=== PATIENT | female | born 1955 | race Caucasian/White ===

== ENCOUNTER 2018-12-31 06:35 | Emergency (ER) | payer BC ==
[2018-12-31 06:49] VITALS: BP 116/69
[2018-12-31] MEDS ORDERED: Sodium Chloride 0.9% 10 ML Syringe FLUSH PRN (06:51)
[2018-12-31] MEDS ORDERED: Aspirin 81 MG Tab.Chew PO ONE (06:51)
[2018-12-31] MEDS ORDERED: Tenecteplase 50 MG Kit IV ONE (06:52)
[2018-12-31] MEDS ORDERED: Aspirin 81 MG Tab.Chew ONE (06:53)
[2018-12-31] MEDS ORDERED: Tenecteplase 50 MG Kit ONE (06:53)
[2018-12-31] MEDS ORDERED: Heparin Sodium 5,000 Units/ML Vial IVPUSH ONE (07:04)
--- NOTE | 2018-12-31 07:04 | EDM.PDOC ---
ED HPI GENERAL MEDICAL PROBLEM - General Chief Complaint: Chest Pain Stated Complaint: CHEST PAIN Time Seen by Provider: 12/31/18 06:51 Source of Information: Reports: Patient History Limitations: Reports: No Limitations - History of Present Illness INITIAL COMMENTS - FREE TEXT/NARRATIVE: The patient presents with chest pain. She said this started about 2:30am. She says it is an achy pain. It is 3/10 now but it was more severe earlier. She has no shortness of breath. She has no fever, chills or cough. She has no abdominal pain. She has nausea and she did vomit once. She has a history of hypertension, hypercholesterolemia and she smokes. She has no known history of heart disease and she does not have diabetes. Onset: Sudden Duration: Hour(s): (2:30) Location: Reports: Chest Quality: Reports: Ache Severity: Moderate Improves with: Reports: None Worsens with: Reports: None Associated Symptoms: Reports: Chest Pain. Denies: Cough, Fever/Chills, Headaches, Nausea/Vomiting, Shortness of Breath Left Chest Pain Score (Numeric/FACES): 5 - Related Data Allergies Allergy/AdvReac Type Severity Reaction Status Date / Time sulfanilamide Allergy Other Verified 12/31/18 06:42 Past Medical History HEENT History: Reports: Impaired Vision Other HEENT History: Wears glasses Cardiovascular History: Reports: High Cholesterol, Hypertension Endocrine/Metabolic History: Reports: Diabetes, Type II - Past Surgical History GI Surgical History: Reports: Cholecystectomy Social & Family History - Tobacco Use Smoking Status *Q: Current Every Day Smoker Years of Tobacco use: 40 Packs/Tins Daily: 1 - Recreational Drug Use Recreational Drug Use: No ED ROS GENERAL - Review of Systems Review Of Systems: See Below Constitutional: Reports: No Symptoms HEENT: Reports: No Symptoms Respiratory: Reports: No Symptoms Cardiovascular: Reports: Chest Pain Endocrine: Reports: No Symptoms GI/Abdominal: Reports: No Symptoms : Reports: No Symptoms Musculoskeletal: Reports: No Symptoms Skin: Reports: No Symptoms ED EXAM, GENERAL - Physical Exam Exam: See Below Exam Limited By: No Limitations General Appearance: Alert, No Apparent Distress Ears: Normal External Exam Nose: Normal Inspection Head: Atraumatic, Normocephalic Neck: Normal Inspection Respiratory/Chest: No Respiratory Distress, Lungs Clear, Normal Breath Sounds Cardiovascular: Regular Rate, Rhythm, No Edema, No Murmur GI/Abdominal: Soft, Non-Tender, No Organomegaly, No Mass Back Exam: Normal Inspection Extremities: Normal Inspection EKG INTERPRETATION EKG Date: 12/31/18 Time: 07:13 Rhythm: NSR Rate (Beats/Min): 88 [place]: Normal P-Wave: Present QRS: Normal ST-T: Elevated QT: Normal Course - Vital Signs Last Recorded V/S: Last Vital Signs Temp 98.5 F 12/31/18 06:46 Pulse 91 12/31/18 06:46 Resp 16 12/31/18 06:46 BP 116/69 12/31/18 06:46 Pulse Ox 97 12/31/18 06:46 - Orders/Labs/Meds Orders: Active Orders 24 hr Category Date Time Status Cardiac Monitoring [RC] . DIRECTED Care 12/31/18 06:51 Active EKG 12 Lead [EKG Documentation Completion] [RC] STAT Care 12/31/18 06:48 Active Oxygen Therapy [RC] PRN Care 12/31/18 06:51 Active Peripheral IV Care [RC] . DIRECTED Care 12/31/18 06:52 Active Chest 1V Frontal [CR] Stat Exams 12/31/18 06:52 Taken CBC W/O DIFF,HEMOGRAM [HEME] MOTH@0700 Lab 01/04/19 07:00 Ordered CBC W/O DIFF,HEMOGRAM [HEME] MOTH@0700 Lab 01/07/19 07:00 Ordered CBC W/O DIFF,HEMOGRAM [HEME] MOTH@0700 Lab 01/11/19 07:00 Ordered CBC W/O DIFF,HEMOGRAM [HEME] MOTH@0700 Lab 01/14/19 07:00 Ordered CBC W/O DIFF,HEMOGRAM [HEME] MOTH@0700 Lab 01/18/19 07:00 Ordered CBC W/O DIFF,HEMOGRAM [HEME] MOTH@0700 Lab 01/21/19 07:00 Ordered CBC WITH AUTO DIFF [HEME] Stat Lab 12/31/18 06:47 Results Heparin Sodium/D5W [Heparin 25,000 Units in D5W 500 ML] Med 12/31/18 07:15 Active 25,000 units in 500 ml IV TITRATE Sodium Chloride 0.9% [Normal Saline] 1,000 ml Med 12/31/18 07:15 Active IV ASDIRECTED Sodium Chloride 0.9% [Saline Flush] Med 12/31/18 06:51 Active 10 ml FLUSH ASDIRECTED PRN Peripheral IV Insertion Adult [OM.PC] Stat Oth 12/31/18 06:51 Ordered Medication Orders Heparin Sodium/Dextrose (Heparin 25,000 Units In D5w 500 Ml) 25,000 units in 500 mls @ 18.688 mls/hr IV TITRATE RENA; Protocol Last Admin: 12/31/18 07:16 Dose: 10 units/kg/hr, 18.688 mls/hr Sodium Chloride (Normal Saline) 1,000 mls @ 150 mls/hr IV ASDIRECTED RENA Last Admin: 12/31/18 07:16 Dose: 150 mls/hr Sodium Chloride (Saline Flush) 10 ml FLUSH ASDIRECTED PRN PRN Reason: Keep Vein Open Last Admin: 12/31/18 07:00 Dose: 10 ml Labs: Laboratory Tests 12/31/18 12/31/18 Range/Units 06:47 06:47 WBC 15.64 H (3.98-10.04) K/mm3 RBC 5.11 (3.98-5.22) M/mm3 Hgb 15.9 H (11.2-15.7) gm/L Hct 46.7 H (34.1-44.9) % MCV 91.4 (79.4-94.8) fl MCH 31.1 (25.6-32.2) pg MCHC 34.0 (32.2-35.5) g/dl RDW Std Deviation 42.3 (36.4-46.3) fL Plt Count 227 (182-369) K/mm3 MPV 10.2 (9.4-12.3) fl Neut % (Auto) 88.6 H (34.0-71.1) % Lymph % (Auto) 8.2 L (19.3-51.7) % [place] % (Auto) 2.7 L (4.7-12.5) % Eos % (Auto) 0.1 L (0.7-5.8) Baso % (Auto) 0.1 (0.1-1.2) % Neut # (Auto) 13.84 H (1.56-6.13) K/mm3 Lymph # (Auto) 1.28 (1.18-3.74) K/mm3 [place] # (Auto) 0.43 H (0.24-0.36) K/mm3 Eos # (Auto) 0.02 L (0.04-0.36) K/mm3 Baso # (Auto) 0.02 (0.01-0.08) K/mm3 Sodium 137 (136-145) mEq/L Potassium 4.0 (3.5-5.1) mEq/L Chloride 100 (98-107) mEq/L Carbon Dioxide 22 (21-32) mEq/L Anion Gap 19.0 H (5-15) BUN 25 H (7-18) mg/dL Creatinine 1.2 H (0.55-1.02) mg/dL Est Cr Clr Drug Dosing 35.36 mL/min Estimated GFR (MDRD) 46 (>60) mL/min BUN/Creatinine Ratio 20.8 H (14-18) Glucose 256 H (80-115) mg/dL Calcium 9.6 (8.5-10.1) mg/dL Total Bilirubin 0.7 (0.2-1.0) mg/dL AST 55 H (15-37) U/L ALT 63 H (14-59) U/L Alkaline Phosphatase 87 (46-116) U/L Troponin I 2.544 H* (0.00-0.056) ng/mL Total Protein 7.8 (6.4-8.2) g/dl Albumin 3.8 (3.4-5.0) g/dl Globulin 4.0 gm/dL Albumin/Globulin Ratio 1.0 (1-2) Meds: Medications Generic Name Dose Route Start Last Admin Trade Name Issaq PRN Reason Stop Dose Admin Heparin Sodium/Dextrose 25,000 units in 500 mls @ 18.688 mls/hr 12/31/18 07: 15 12/31/18 07:16 Heparin 25,000 Units In D5w 500 Ml IV 10 units/kg/hr TITRATE RENA 18.688 mls/hr Administration Protocol 10 UNITS/KG/HR Sodium Chloride 1,000 mls @ 150 mls/hr 12/31/18 07:15 12/31/18 07:16 Normal Saline IV 150 mls/hr ASDIRECTED RENA Administration Sodium Chloride 10 ml 12/31/18 06:51 12/31/18 07:00 Saline Flush FLUSH 10 ml ASDIRECTED PRN Administration Keep Vein Open Discontinued Medications Generic Name Dose Route Start Last Admin Trade Name Evan PRN Reason Stop Dose Admin Aspirin 324 mg 12/31/18 06:51 12/31/18 07:00 Aspirin PO 12/31/18 06:52 324 mg ONETIME ONE Administration Aspirin Confirm 12/31/18 06:53 12/31/18 07:00 Aspirin Administered 12/31/18 06:54 Not Given Dose 324 mg .ROUTE .STK-MED ONE Heparin Sodium (Porcine) 5,000 units 12/31/18 07:04 12/31/18 07:16 Heparin Sodium IVPUSH 12/31/18 07:05 5,000 units ONETIME ONE Administration Rosuvastatin Calcium 20 mg 12/31/18 07:08 12/31/18 07:16 Crestor PO 12/31/18 07:09 20 mg ONETIME ONE Administration Tenecteplase 50 mg 12/31/18 06:52 12/31/18 06:59 Tnkase IV 12/31/18 06:53 50 mg ONETIME ONE Administration Protocol Tenecteplase Confirm 12/31/18 06:53 12/31/18 07:00 Tnkase Administered 12/31/18 06:54 Not Given Dose 50 mg .ROUTE .STK-MED ONE - Re-Assessments/Exams Free Text/Narrative Re-Assessment/Exam: 12/31/18 07:13 An EKG was done right away and it shows a STEMI in the inferior leads. Two IVs were inserted. The patient was given aspirin, TNKase per weight based protocol , heparin bolus of 5,000 units and then a drip, CXR and labs. Her CXR looks good. I called [facility] in [place] and talked with the ER doctor Dr Robert and he accepted the patient. I also talked with the architectural representative Dr Segura and he did not want any nitrates but he wanted the heparin bolus and drip, aspirin and lipitor. I have ordered all of this meds. 12/31/18 07:24 Her troponin is elevated at 2.54. Departure - Departure Time of Disposition: 07:25 Disposition: DC/Tfer to Acute Hospital 02 Reason for Transfer *Q: Primary PCI Indicated Condition: Serious Clinical Impression: STEMI (ST elevation myocardial infarction) Qualifiers: Involved coronary artery: right coronary artery Qualified Code(s): I21.11 - ST elevation (STEMI) myocardial infarction involving right coronary artery Referrals: Sumeet Morris MD [Primary Care Provider] - Forms: ED Department Discharge - My Orders Last 24 Hours: My Active Orders 12/31/18 06:47 CBC WITH AUTO DIFF [HEME] Stat 12/31/18 06:48 EKG 12 Lead [EKG Documentation Completion] [RC] STAT 12/31/18 06:51 Cardiac Monitoring [RC] . DIRECTED Oxygen Therapy [RC] PRN Sodium Chloride 0.9% [Saline Flush] 10 ml FLUSH ASDIRECTED PRN Peripheral IV Insertion Adult [OM.PC] Stat 12/31/18 06:52 Peripheral IV Care [RC] . DIRECTED Chest 1V Frontal [CR] Stat 12/31/18 07:15 Heparin Sodium/D5W [Heparin 25,000 Units in D5W 500 ML] 25,000 units in 500 ml IV TITRATE Sodium Chloride 0.9% [Normal Saline] 1,000 ml IV ASDIRECTED 01/04/19 07:00 CBC W/O DIFF,HEMOGRAM [HEME] MOTH@0700 01/07/19 07:00 CBC W/O DIFF,HEMOGRAM [HEME] MOTH@0700 01/11/19 07:00 CBC W/O DIFF,HEMOGRAM [HEME] MOTH@0700 01/14/19 07:00 CBC W/O DIFF,HEMOGRAM [HEME] MOTH@0700 01/18/19 07:00 CBC W/O DIFF,HEMOGRAM [HEME] MOTH@0700 01/21/19 07:00 CBC W/O DIFF,HEMOGRAM [HEME] MOTH@0700 - Assessment/Plan Last 24 Hours: My Active Orders 12/31/18 06:47 CBC WITH AUTO DIFF [HEME] Stat 12/31/18 06:48 EKG 12 Lead [EKG Documentation Completion] [RC] STAT 12/31/18 06:51 Cardiac Monitoring [RC] . DIRECTED Oxygen Therapy [RC] PRN Sodium Chloride 0.9% [Saline Flush] 10 ml FLUSH ASDIRECTED PRN Peripheral IV Insertion Adult [OM.PC] Stat 12/31/18 06:52 Peripheral IV Care [RC] . DIRECTED Chest 1V Frontal [CR] Stat 12/31/18 07:15 Heparin Sodium/D5W [Heparin 25,000 Units in D5W 500 ML] 25,000 units in 500 ml IV TITRATE Sodium Chloride 0.9% [Normal Saline] 1,000 ml IV ASDIRECTED 01/04/19 07:00 CBC W/O DIFF,HEMOGRAM [HEME] MOTH@0700 01/07/19 07:00 CBC W/O DIFF,HEMOGRAM [HEME] MOTH@0701/11/19 07:00 CBC W/O DIFF,HEMOGRAM [HEME] MOTH@69901/14/19 07:00 CBC W/O DIFF,HEMOGRAM [HEME] MOTH@0700 01/18/19 07:00 CBC W/O DIFF,HEMOGRAM [HEME] MOTH@0701/21/19 07:00 CBC W/O DIFF,HEMOGRAM [HEME] MOTH@07
[2018-12-31] MEDS ORDERED: Rosuvastatin 10 MG Tab PO ONE (07:08)
[2018-12-31] MEDS ORDERED: Sodium Chloride 0.9% 1,000 ML IV SCH (07:15)
[2018-12-31] MEDS ORDERED: Heparin Sodium/D5W 25,000 UNITS/500 ML BAG IV SCH (07:15)
--- NOTE | 2018-12-31 07:26 | CR ---
Chest: Portable view of the chest was obtained. Comparison: No prior chest x-ray, previous screening CT exam of 10/20/17. Heart size and mediastinum are within normal limits for portable technique. Lungs are clear with no acute parenchymal change. Bony structures show minimal scoliosis and degenerative change within the spine. Impression: 1. Incidental findings. Nothing acute is identified. Diagnostic code #2
[2018-12-31] MEDS ORDERED: Sodium Chloride 0.9% 500 ML IV ONE (07:34)
[2018-12-31] MEDS ORDERED: DOPamine/Dextrose 5%-Water 400 MG/250 ML BAG ONE (07:51)
[2018-12-31] MEDS ORDERED: DOPamine/Dextrose 5%-Water 400 MG/250 ML BAG IV SCH (08:00)
[2018-12-31] MEDS ORDERED: Ondansetron 4 MG/2 ML SDV IVPUSH ONE (08:17)
[2018-12-31] MEDS ORDERED: Ondansetron 4 MG/2 ML SDV ONE (08:17)
== END 2018-12-31 08:30 ==
LOC: JD.ED 06:35
DX: I21.11 ST elevation (STEMI) myocardial infarction involving right coronary artery (principal); E11.9 Type 2 diabetes mellitus without complications; I10 Essential (primary) hypertension; F17.210 Nicotine dependence, cigarettes, uncomplicated; Z88.2 Allergy status to sulfonamides
CPT/HCPCS: 36415; 71045; 80053; 84484; 85025; 93005; 96365; 96368; 96375; 96376; 99291; 99292; A9270; J1265; J1644; J2405; J3101; J7040; 93010

== ENCOUNTER 2024-09-09 07:00 | Day surgery (SDC) | payer MEDICARE, BC ==
[2024-09-09] MEDS: Ofloxacin 0.3% Ophth Soln 5 ML Bottle EYELF SCH (07:10)
[2024-09-09] MEDS: Brimonidine 0.2% Ophth Soln 5 ML Bottle EYELF SCH (07:15)
[2024-09-09 07:17] VITALS: BP 134/94; PULSE 75
[2024-09-09] MEDS: Phenylephrine 2.5% Ophth Soln 2 ML Bot EYELF SCH (07:19)
[2024-09-09] MEDS: Lidocaine 1% PF 2 ML SDV INJECT SCH (07:21)
[2024-09-09] MEDS: Tetracaine HCl/PF 0.5% 4 ML Bottle EYEBOTH SCH (07:21)
[2024-09-09] MEDS: Pilocarpine 4% Ophth Soln 15 ML Bot EYELF SCH (07:22)
[2024-09-09] MEDS: Cefuroxime 10 MG/ML SYRINGE EYELF SCH (07:22)
[2024-09-09] MEDS: Tropicamide 1% Ophth Soln 3 ML Bottle EYELF SCH (07:23)
== END 2024-09-09 08:52 ==
LOC: JD.SDS 07:00
PROVIDERS: ATTEND Ophthalmology
DX: E11.36 Type 2 diabetes mellitus with diabetic cataract (principal); H25.813 Combined forms of age-related cataract, bilateral; E78.2 Mixed hyperlipidemia; Z87.891 Personal history of nicotine dependence; Z79.84 Long term (current) use of oral hypoglycemic drugs; Z79.899 Other long term (current) drug therapy; Z88.2 Allergy status to sulfonamides
CPT/HCPCS: 66984; A9270; J0697; J3490

== ENCOUNTER 2024-10-07 07:00 | Day surgery (SDC) | payer MEDICARE, BC ==
[2024-10-07] MEDS: Phenylephrine 2.5% Ophth Soln 2 ML Bot EYERT SCH (06:49)
[2024-10-07] MEDS: Pilocarpine 4% Ophth Soln 15 ML Bot EYERT SCH (06:50)
[2024-10-07] MEDS: Polymyxin B/Trimethoprim 10 ML Bottle EYERT SCH (06:50)
[2024-10-07] MEDS: Cefuroxime 10 MG/ML SYRINGE EYERT SCH (06:50)
[2024-10-07] MEDS: Tetracaine HCl/PF 0.5% 4 ML Bottle EYEBOTH SCH (06:50)
[2024-10-07] MEDS: Lidocaine 1% PF 2 ML SDV INJECT SCH (06:50)
[2024-10-07] MEDS: Brimonidine 0.2% Ophth Soln 5 ML Bottle EYERT SCH (06:51)
[2024-10-07 07:14] VITALS: BP 153/86; PULSE 72
[2024-10-07] MEDS: Tropicamide 1% Ophth Soln 3 ML Bottle EYERT SCH (07:22)
[2024-10-07] MEDS: Ofloxacin 0.3% Ophth Soln 5 ML Bottle EYERT SCH (07:27)
== END 2024-10-07 09:00 ==
LOC: JD.SDS 07:00
PROVIDERS: ATTEND Ophthalmology
DX: E11.36 Type 2 diabetes mellitus with diabetic cataract (principal); H25.811 Combined forms of age-related cataract, right eye; H52.31 Anisometropia; H40.053 Ocular hypertension, bilateral; I10 Essential (primary) hypertension; E78.2 Mixed hyperlipidemia; Z79.84 Long term (current) use of oral hypoglycemic drugs; Z87.891 Personal history of nicotine dependence; Z79.899 Other long term (current) drug therapy
CPT/HCPCS: A9270-GY; J0697; J3490